=== PATIENT | female | born 1985 | race Two or more races ===

== ENCOUNTER 2022-03-04 15:08 | Emergency (ER) | payer OTHER ==
[2022-03-04 15:36] VITALS: BP 125/83; PULSE 86; TEMP 97.9; BMI 25.6
== END 2022-03-04 18:00 | disposition home or self-care (01) ==
LOC: JER 15:08
DX: J01.10 Acute frontal sinusitis, unspecified (principal)
CPT/HCPCS: 99281-25

== ENCOUNTER 2022-10-16 12:03 | Emergency (ER) | payer OTHER ==
[2022-10-16 12:23] VITALS: BP 116/79; PULSE 80; RESP 18; TEMP 98.2; BMI 27.6
[2022-10-16] MEDS ORDERED: ACETAMINOPHEN 1000 MG/100 ML BAG IVPB ONE (15:00)
[2022-10-16] MEDS ORDERED: LIDOCAINE 5% TOPICAL PATCH TP ONE (15:00)
[2022-10-16] MEDS ORDERED: ACETAMINOPHEN INJECTION 100 ML IVPB ONE (15:11)
[2022-10-16] MEDS ORDERED: LIDOCAINE 5% TOPICAL PATCH ONE (15:16)
[2022-10-16 15:56] LABS: BASO % 0.6 % (0-2.0); EOS % 0.9 % (0-4.5); HEMATOCRIT 39.6 % (32.4-45.2); LYMPH % 16.5 % (8-40); MCH 24.8 pg (25.7-33.7); MCHC 32.9 g/dl (32.0-36.0); MEAN CELL VOLUME 75.5 fl (80-96); MEAN PLT VOLUME 8.3 fl (7.5-11.1); MONO % 6.8 % (3.8-10.2); NEUT % 75.2 % (42.8-82.8); PLATELET COUNT 265 10^3/uL (134-434); RBC 5.25 M/mm3 (3.60-5.2); RDW 15.8 % (11.6-15.6); WHITE BLOOD COUNT 10.6 K/mm3 (4.0-10.0)
[2022-10-16 16:19] LABS: CALCIUM 8.8 mg/dL (8.5-10.1)
[2022-10-16 16:20] LABS: ALBUMIN 3.3 g/dl (3.4-5.0); BLOOD UREA NITROGEN 10.9 mg/dL (7-18); MAGNESIUM 2.2 mg/dL (1.8-2.4)
[2022-10-16 16:23] LABS: CREATININE 0.6 mg/dL (0.55-1.3)
[2022-10-16 16:24] LABS: BILIRUBIN,TOTAL 0.6 mg/dL (0.2-1)
[2022-10-16 17:48] LABS: EPI CELLS 8 /uL (0-25.1); HYALINE CASTS 17 /uL (0-3.1); URINE APPEARANCE CLOUDY; URINE BACTERIA 2477 /uL (0-1359); URINE BILIRUBIN NEGATIVE (NEGATIVE); URINE COLOR YELLOW; URINE GLUCOSE (UA) NEGATIVE (NEGATIVE); URINE KETONE NEGATIVE (NEGATIVE); URINE LEUK ESTERASE 2+ (NEGATIVE); URINE NITRITE NEGATIVE (NEGATIVE); URINE PROTEIN 1+ (NEGATIVE); URINE RBC 208 /uL (0-23.9); URINE WBC 760 /uL (0-25.8)
[2022-10-16] MEDS ORDERED: CEFTRIAXONE 1,000 MG in DEXTROSE 5%-WATER - 50 ML IVPB ONE (17:49)
[2022-10-16] MEDS ORDERED: CEFTRIAXONE 1 GM/50 ML BAG ONE (18:00)
[2022-10-16] MEDS ORDERED: LIDOCAINE PATCH REMOVAL MC SCH (22:00)
== END 2022-10-16 21:37 | disposition home or self-care (01) ==
LOC: JER 12:03
PROC: 3E033GC Introduction of Other Therapeutic Substance into Peripheral Vein, Percutaneous Approach (ICD-10-PCS; principal; 2022-10-16)
DX: N39.0 Urinary tract infection, site not specified (principal)
CPT/HCPCS: 36415; 74177-TC; 76830-TC; 80053; 81003; 83690; 83735; 84703; 85025; 87086; 87186; 99285-25; Q9967